=== PATIENT | female | born 1975 | race Caucasian/White ===

== ENCOUNTER 2018-12-02 22:18 | Day surgery (SDC) | payer BC, OTHER ==
--- NOTE | 2018-12-02 22:28 | PDOC ---
History of Present Illness - General Chief Complaint: Pain, Acute Stated Complaint: SUDDEN ONSET ABDOMINAL PAIN Time Seen by Provider: 12/02/18 22:27 - History of Present Illness Initial Comments: 12/02/18 23:14 This otherwise healthy 43-year-old woman () presents with several hour history of progressive abdominal pain. Patient states that she began to have some discomfort in the upper portion of her abdomen approximately 5:30 PM today she was driving home from [place]. Over the next few hours pain became more widespread, ultimately localized in bilateral lower quadrants. Patient states that the pain is intermittently more severe, especially with movement . She has had intermittent nausea without vomiting. No fever or chills noted. She denies dysuria/hematuria/urinary frequency or urgency. Last menstrual period "just finished" (normal duration and flow). No unusual vaginal discharge noted. Patient had normal bowel movement this morning. Last full meal was at breakfast early this morning. Had small bite of rice at approximately 7 PM No recent travel. No recent upper respiratory infection or other acute febrile illness. On no daily medications No significant past medical history () No known ALLERGIES Denies smoking/daily alcohol or other recreational drug use Past History - Past Medical History Allergies/Adverse Reactions: Allergies Allergy/AdvReac Type Severity Reaction Status Date / Time No Known Allergies Allergy Verified 12/02/18 22:20 Home Medications: Ambulatory Orders NK [No Known Home Medication] 12/02/18 Review of Systems - Review of Systems Able to Perform ROS?: Yes Comments:: 12 point review of systems is negative except for what is noted in the history of present illness *Physical Exam - Physical Exam Comments: GENERAL: Adult female, alert and oriented 3, in mild distress secondary lower abdominal pain HEAD: Normal with no signs of trauma. EYES: PERRLA, EOMI, sclera anicteric, conjunctiva clear. ENT: Ears normal, nares patent, oropharynx clear without exudates. Dry mucous membranes. NECK: Normal range of motion, supple without lymphadenopathy, JVD, or masses. LUNGS: Breath sounds equal, clear to auscultation bilaterally. No wheezes, and no crackles. HEART:Regular rate and rhythm, normal S1 and S2 without murmur, rub or gallop. ABDOMEN:.Hypoactive bowel sounds. Soft, no masses, moderate tenderness to palpation bilateral lower quadrants with positive rebound EXTREMITIES: Normal range of motion, no edema. No clubbing or cyanosis. No erythema, or tenderness. NEUROLOGICAL: Cranial nerves II through XII grossly intact. Normal speech. No focal neurological deficits. ED Treatment Course - LABORATORY CBC & Chemistry Diagram: 12/02/18 22:30 12/02/18 22:30 Progress Note - Progress Note Progress Note: Otherwise healthy 43-year-old woman presents with several hour history of abdominal pain. Nausea (without vomiting) is present but no other associated symptoms. Exam consistent with lower abdominal tenderness with rebound. Appendicitis vs Diverticulitis vs(much less likely) pyelonephritis/perirenal abscess, tubo-ovarian abscess IV started and patient received a liter of normal saline IV. Laboratory evaluation notable for white blood cell count of 16,400 with predominance of neutrophils. BUN 15 with creatinine is 0.9. Electrolytes are normal as are LFTs. PGU is negative. Urinalysis shows no evidence of infection or other acute abnormalities Abdominal/pelvic CT with oral and IV contrast performed. Preliminary interpretation by Imaging airport operations officer: 1.2 cm thick-walled appendix with minimal surrounding fat stranding, consistent with acute appendicitis. No evidence of abscess or perforation. Results discussed with the patient and her Patient given Zosyn 4.5 g IV. Case discussed with of [facility], on-call for general surgery : Plan will be for surgery performed here in the morning. The patient will be admitted here (satellite, 's service). Acetaminophen 1 g IV given. Twelve-lead electrocardiogram performed: Sinus tachycardia 108 bpm; axis, intervals and waveforms are all normal. No evidence of acute ST or T-wave abnormalities. No evidence of acute cardiac arrhythmia. Medical Decision Making - Medical Decision Making 12/03/18 02:41 PA chest x-ray performed: No evidence of infiltrates,effusions or masses. Cardiac silhouette/great vessels/bony structures all within normal limits. *DC/Admit/Observation/Transfer Diagnosis at time of Disposition: Acute appendicitis Qualifiers: Acute appendicitis type: with localized peritonitis Appendicitis gangrene presence: unspecified whether gangrene present Appendicitis perforation presence : without perforation Appendicitis abscess presence: without abscess Qualified Code(s): K35.30 - Acute appendicitis with localized peritonitis, without perforation or gangrene - Discharge Dispostion Condition at time of disposition: Stable Decision to Admit order: Yes - Referrals - Patient Instructions - Post Discharge Activity
[2018-12-02 22:49] LABS: BASO % 0.4 % (0-2.0); EOS % 0.3 % (0-4.5); HEMATOCRIT 39.8 % (32.4-45.2); HEMOGLOBIN 12.9 GM/dl (10.7-15.3); LYMPH % 6.9 % (8-40); MCH 29.7 pg (25.7-33.7); MCHC 32.5 g/dl (32.0-36.0); MEAN CELL VOLUME 91.4 fl (80-96); MEAN PLT VOLUME 7.8 fl (7.5-11.1); MONO % 6.7 % (3.8-10.2); NEUT % 85.7 % (42.8-82.8); PLATELET COUNT 330 K/MM3 (134-434); RBC 4.35 M/mm3 (3.60-5.2); RDW 13.9 % (11.6-15.6); WHITE BLOOD COUNT 16.4 K/mm3 (4.0-10.8)
[2018-12-02 23:02] LABS: BILIRUBIN,TOTAL 0.4 mg/dl (0.2-1); CALCIUM 8.7 mg/dl (8.5-10); CREATININE 0.7 mg/dl (0.55-1.3); POTASSIUM 3.8 mmol/L (3.5-5.1); TOT PROT 6.6 g/dl (6.4-8.2)
[2018-12-02 23:08] LABS: EPITHELIAL CELLS MANY /hpf
[2018-12-02] MEDS ORDERED: SODIUM CHLORIDE 1,000 ML IV STA (23:13)
[2018-12-03] MEDS ORDERED: PIPERACILLIN/TAZOB 4.5 GM 4.5 GM in DEXTROSE 5%-WATER 100 ML IVPB ONE (01:40)
[2018-12-03] MEDS ORDERED: PIPERACILLIN/TAZOBACTAM 4.5 GM VIAL IVPB ONE (01:41)
[2018-12-03] MEDS ORDERED: ACETAMINOPHEN INJECTION 100 ML IVPB ONE (01:56)
[2018-12-03] MEDS ORDERED: ACETAMINOPHEN 1000 MG/100 ML VIAL (NON FORMULARY) IVPB ONE ×2 (02:01→08:15)
[2018-12-03 03:16] VITALS: BMI 26.5
[2018-12-03] MEDS ORDERED: LACTATED RINGERS SOLUTION 1,000 ML IV SCH ×4 (08:00→19:23)
[2018-12-03] MEDS ORDERED: BUPIVACAINE HCL/PF 0.5% (5MG/ML) 10 ML VIAL ONE (09:23)
[2018-12-03] MEDS ORDERED: LIDOCAINE HCL 1% PRESERVATIVE FREE - 30ML VIAL ONE (09:23)
[2018-12-03] MEDS ORDERED: fentaNYL CITRATE 250 MCG/5 ML VIAL ONE (09:33)
[2018-12-03] MEDS ORDERED: MIDAZOLAM HCL 2 MG/2 ML SINGLE DOSE VIAL ONE (09:33)
[2018-12-03] MEDS ORDERED: SUCCINYLCHOLINE CHLORIDE 200 MG/10 ML SYRINGE ONE (09:34)
[2018-12-03] MEDS ORDERED: PROPOFOL 20 ML ONE (09:34)
[2018-12-03] MEDS ORDERED: ROCURONIUM BROMIDE 50 MG/5 ML SYRINGE ONE (09:34)
[2018-12-03] MEDS ORDERED: DEXAMETHASONE SOD PHOSPHATE 4 MG/1 ML VIAL ONE ×2 (09:35→10:37)
[2018-12-03] MEDS ORDERED: ONDANSETRON 4 MG/2 ML VIAL ONE ×2 (09:35→10:37)
--- NOTE | 2018-12-03 09:47 | HP ---
Admitting History and Physical - Admission Chief Complaint: abdominal pain migrating to RLQ History of Present Illness: 43yo healthy F with h/o presents with generalized abdominal pain starting yesterday evening, migrating to lower abdomen and RLQ, associated with nausea, chills but no vomiting. Normal BM yesterday morning. In ER, she has wbc [address] shows acute appendicitis without apparent perforation or abscess. She has gotten IV fluids, Zosyn and pain medicine. Seen and examined in bed; feeling a little better, but hurts when she moves. Urinating ok. Just finished her period. History Source: Patient Limitations to Obtaining History: No Limitations - Past Medical History ...: No - Past Surgical History Past Surgical History: Yes: - Smoking History Smoking history: Never smoked Have you smoked in the past 12 months: No - Alcohol/Substance Use Hx Alcohol Use: No History of Substance Use: reports: None - Social History Usual Living Arrangement: Yes: With Spouse ADL: Independent Occupation: teacher Home Medications - Allergies Allergies/Adverse Reactions: Allergies Allergy/AdvReac Type Severity Reaction Status Date / Time No Known Allergies Allergy Verified 12/02/18 22:20 - Home Medications Home Medications: Ambulatory Orders NK [No Known Home Medication] 12/02/18 Family Medical History Family History: Unremarkable (noncontributory) Review of Systems - Review of Systems Constitutional: reports: Chills, Loss of Appetite. denies: Fever Eyes: reports: Other (glasses for distance). denies: Blurred Vision, Recent Change in Vision HENT: denies: Difficult Swallowing, Throat Pain Neck: denies: Swollen Glands, Tenderness Cardiovascular: denies: Chest Pain, Palpitations Respiratory: denies: Cough, SOB Gastrointestinal: reports: Abdominal Pain, Nausea. denies: Constipation, Diarrhea, Vomiting Genitourinary: denies: Burning, Dysuria Musculoskeletal: denies: Back Pain, Joint Pain, Muscle Pain Integumentary: denies: Change in Color, Rash Neurological: reports: Headache (occasional). denies: Dizziness Psychiatric: denies: Anxiety, Depression Physical Examination Vital Signs: Vital Signs Temperature 97.8 F 12/03/18 06:41 Pulse Rate 92 H 12/03/18 06:41 Respiratory Rate 18 12/03/18 06:41 Blood Pressure 103/61 12/03/18 06:41 O2 Sat by Pulse Oximetry (%) 98 12/03/18 06:41 Constitutional: Yes: Well Nourished, No Distress, Calm Eyes: Yes: Conjunctiva Clear, EOM Intact HENT: Yes: Atraumatic, Normocephalic Neck: Yes: Supple, Trachea Midline Cardiovascular: Yes: Regular Rate and Rhythm Respiratory: Yes: Regular, CTA Bilaterally Gastrointestinal: Yes: Soft, Hypoactive Bowel Sounds, Tenderness (RLQ, suprapubic, also referred from LLQ; no rebound/guarding) ...Rectal Exam: Yes: Deferred Renal/: No: CVA Tenderness - Left, CVA Tenderness - Right Musculoskeletal: No: Back Pain, Joint Stiffness, Joint Swelling Extremities: No: Cool, Cyanosis Edema: No Peripheral Pulses WNL: Yes Integumentary: No: Jaundice, Rash Neurological: Yes: Alert, Oriented Psychiatric: Yes: Alert, Oriented Labs: CBC, BMP 12/02/18 22:30 12/02/18 22:30 CMP Sodium 136 mmol/L (136-145) 12/02/18 22:30 Potassium 3.8 mmol/L (3.5-5.1) 12/02/18 22:30 Chloride 104 mmol/L (98-107) 12/02/18 22:30 Carbon Dioxide 28 mmol/L (21-32) 12/02/18 22:30 Anion Gap 4 MMOL/L (8-16) L 12/02/18 22:30 BUN 15.0 mg/dl (7-18) 12/02/18 22:30 Creatinine 0.7 mg/dl (0.55-1.3) 12/02/18 22:30 Est GFR (CKD-EPI)AfAm 122.99 12/02/18 22:30 Est GFR (CKD-EPI)NonAf 106.12 12/02/18 22:30 Random Glucose 118 mg/dl (74-106) H 12/02/18 22:30 Calcium 8.7 mg/dl (8.5-10) 12/02/18 22:30 Total Bilirubin 0.4 mg/dl (0.2-1) 12/02/18 22:30 AST 15 U/L (15-37) 12/02/18 22:30 ALT 14 U/L (13-61) 12/02/18 22:30 Alkaline Phosphatase 48 U/L (45-117) 12/02/18 22:30 Total Protein 6.6 g/dl (6.4-8.2) 12/02/18 22: Albumin 4.0 g/dl (3.4-5.0) 12/02/18 22:30 Urine Test Results Urine Color Yellow 12/02/18: Urine Appearance Clear 12/02/18: Urine pH 6.0 (4.5-8) 12/02/18 22: Urine Protein Negative (NEGATIVE) 12/02/18 22:30 Urine Glucose (UA) Negative (NEGATIVE) 12/02/18: Urine Ketones Negative (NEGATIVE) 12/02/18: Urine Blood Trace-intact (NEGATIVE) 12/02/18 Urine Nitrite Negative (NEGATIVE) 12/02/18: Urine Bilirubin Negative (NEGATIVE) 12/02/18:30 Ur Leukocyte Esterase Negative (NEGATIVE) 12/02/18: Urine RBC 2-5 /hpf (0-4) 12/02/18: Urine WBC 2-5 (NEGATIVE) 12/02/18 22:30 Imaging - Results Cat Scan: Report Reviewed, Image Reviewed (enlarged appendix with inflammatory changes, no apparent abscess or perforation) Problem List - Problems (1) Acute appendicitis with localized peritonitis, without perforation, abscess , or gangrene Assessment/Plan: admit 23H/satellite to surgery NPO until postop/IV fluids pain meds prn nonnarcotics first line DVT prophylaxis periop antibiotics Discussed with patient risks, benefits and alternatives of laparoscopic possible open appendectomy, including but not limited to bleeding, infection, injury to adjacent structures, intestinal leak or injury, intraabdominal abscess , incisional hernia, need for further procedures; alternatives include antibiotics, delayed or no surgery - risks of this include failure of nonoperative therapy, perforation, sepsis, recurrence. Patient desires to proceed with operation - will take to OR for above. Informed consent signed for same. Code(s): K35.30 - ACUTE APPENDICITIS WITH LOC PERITONITIS, W/O PERF OR GANGR (2) RLQ abdominal pain Code(s): R10.31 - RIGHT LOWER QUADRANT PAIN (3) Nausea alone Code(s): R11.0 - NAUSEA (4) Chills (without fever) Code(s): R68.83 - CHILLS (WITHOUT FEVER)
--- NOTE | 2018-12-03 10:27 | EKG ---
Test Reason : Blood Pressure : / mmHG Vent. Rate : 108 BPM Atrial Rate : 108 BPM P-R Int : 154 ms QRS Dur : 072 ms QT Int : 342 ms P-R-T Axes : 057 057 002 degrees QTc Int : 458 ms SINUS TACHYCARDIA OTHERWISE NORMAL ECG NO PREVIOUS ECGS AVAILABLE Confirmed by CHUY SHAY MD ([id number]) on 12/03/2018 10:26:56 AM Referred By: Confirmed By:CHUY SHAY MD
[2018-12-03] MEDS ORDERED: NEOSTIGMINE METHYLSULFATE 0.5 MG/ML - 10 ML MDV ONE (10:36)
[2018-12-03] MEDS ORDERED: GLYCOPYRROLATE 0.2 MG/1 ML VIAL ONE ×3 (10:37→10:58)
[2018-12-03] MEDS ORDERED: KETOROLAC TROMETHAMINE 30 MG/1 ML VIAL ONE (10:39)
[2018-12-03] MEDS ORDERED: LIDOCAINE HCL 1%, 10 MG/ML (50 mL VIAL) IJ ONE (10:43)
[2018-12-03] MEDS ORDERED: BUPIVACAINE HCL/PF 0.5% (5 MG/ML) 30 ML VIAL IJ ONE (10:43)
[2018-12-03] MEDS ORDERED: BENZOIN TINCTURE SWABSTICK TP ONE (10:46)
[2018-12-03] MEDS ORDERED: ONDANSETRON 4 MG/2 ML VIAL IVPUSH PRN ×2 (11:01→19:23)
[2018-12-03] MEDS ORDERED: PROMETHAZINE HCL 25 MG/1 ML VIAL IVPUSH PRN (11:01)
[2018-12-03] MEDS ORDERED: oxyCODONE HCL 5 MG TABLET PO PRN ×2 (11:01)
--- NOTE | 2018-12-03 11:16 | OP ---
Operative Note - Note: Operative Date: 12/03/18 Pre-Operative Diagnosis: acute appendicitis Operation: laparoscopic appendectomy Findings: inflamed, enlarged appendix; little yellow fluid in pelvis, suctioned Post-Operative Diagnosis: Same as Pre-op Surgeon: Kevin Byrd Anesthesiologist/CREDIT CARD INTERVIEWER: Luiz Manuel Anesthesia: General, Local (10ml 1% lido + 0.5% marcaine) Specimens Removed: appendix to pathology Estimated Blood Loss (mls): 5 Drains & Tubes with Location: Reyes out at end Drains, Volume Out (mls): 300 (UOP) Fluid Volume Replaced (mls): 900 (crystalloid) Operative Report Dictated: Yes
[2018-12-03] MEDS ORDERED: ACETAMINOPHEN 325 MG TABLET (FP) PO SCH (15:00)
[2018-12-03] MEDS ORDERED: IBUPROFEN 600 MG TABLET (FP) PO SCH (18:00)
[2018-12-03] MEDS: ACETAMINOPHEN 325 MG TABLET (FP) PO SCH (21:46)
[2018-12-03] MEDS: IBUPROFEN 600 MG TABLET (FP) PO SCH (23:56)
[2018-12-04] MEDS: ACETAMINOPHEN 325 MG TABLET (FP) PO SCH ×2 (02:32→10:44)
[2018-12-04] MEDS: IBUPROFEN 600 MG TABLET (FP) PO SCH (05:52)
[2018-12-04 06:56] VITALS: BP 107/69; PULSE 76; TEMP 98
--- NOTE | 2018-12-04 11:44 | DS ---
Physical Examination Vital Signs: Vital Signs Temperature 98.0 F 12/04/18 05:00 Pulse Rate 76 12/04/18 05:00 Respiratory Rate 18 12/04/18 05:00 Blood Pressure 107/69 12/04/18 05:00 O2 Sat by Pulse Oximetry (%) 98 12/04/18 06:55 Findings/Remarks: s/p lap appy seen and examined in bed feeling better, pain mainly in incisions, mostly umbilical little sneezing last night - and son at home having congestion/colds voiding, ambulating, passing gas, no BM yet tolerating diet Constitutional: Yes: Well Nourished, No Distress, Calm Eyes: Yes: Conjunctiva Clear, EOM Intact HENT: Yes: Atraumatic, Normocephalic Cardiovascular: Yes: Regular Rate and Rhythm Respiratory: Yes: Regular, CTA Bilaterally Gastrointestinal: Yes: Soft, Distention (mild), Hypoactive Bowel Sounds, Tenderness (incisional, mainly umbilical - minimal to none in RLQ) Extremities: No: Cool, Cyanosis Integumentary: Yes: Incision (x3 dressed). No: Jaundice, Rash Wound/Incision: Yes: Steri Strips (under dressings), Dressing Dry and Intact (x3 ). No: Dressing Removed Neurological: Yes: Alert, Oriented Labs: no new labs Discharge Summary Reason For Visit: APPENDICITIS Current Active Problems Acute appendicitis with localized peritonitis, without perforation, abscess, or gangrene (Acute) Chills (without fever) (Acute) Nausea alone (Acute) RLQ abdominal pain (Acute) Procedures: Principal: laparoscopic appendectomy Hospital Course: 43yo healthy F with h/o presented with abdominal pain settling in RLQ for <1 day, associated with chills and nausea but no vomiting. In ER, she had wbc [address] showed acute appendicitis without perforation. She was taken for uneventful laparoscopic appendectomy and given Zosyn x 2 doses preop. Postop, she has done well, ambulating, voiding, tolerating diet, passing gas, though no BM yet. Incisional pain is managed well with alternating tylenol and ibuprofen. She is discharged home with lifting restrictions to f/u in [address] Gomez. Time spent on discharge: 35 minutes Condition: Good - Instructions Diet, Activity, Other Instructions: Postoperative instructions: You had a laparoscopic appendectomy on 12/03/[address] Kevin Byrd of [facility]. Activity: Resume your usual activities gradually, but no heavy exertion or lifting/carrying more than 10-15 pounds for 1 month. Remove dressings 48 hours after surgery; sticky tapes underneath will fall off by themselves. You may shower daily once dressings come off (leave sticky tapes), just pat the incision areas dry. No bath or swimming until skin incisions have fully healed. Eat lightly at first, but advance to your usual diet as tolerated. Pain: For pain, you may use and alternate Tylenol (acetaminophen) 1-2 pills and/ or ibuprofen 200 mg (1-3 pills) every 6 hours each as needed; this means that you can take one OR the other at 3-hour intervals. Do not take more than 4000mg of acetaminophen in a day. Take medications as prescribed or indicated on the labeling. Follow-up: Call Dr. Byrd's office at [phone] to make your postop appointment (Monday in approximately 2 weeks after surgery). Clinic is held in the Diagnostic Center on the first floor of [facility] ( main campus), [facility] in [place]. Call the office if you have: * increasing pain not responsive to pain medication * fever of 101F or higher * vomiting * unusual or increasing bleeding or drainage from wounds * increasing redness or swelling at wound sites Also, see your primary medical doctor (Dr. Gomez) within 1-2 weeks. Referrals: Kevin Byrd MD [Staff Physician] - 2 Weeks (CALL for appointment time - Clinic is at [facility], 1st floor in the Diagnostic Center ( [facility])) Disposition: HOME - Home Medications Comprehensive Discharge Medication List: Ambulatory Orders Acetaminophen [Tylenol .Regular Strength -] 650 mg PO Q6H tablet 12/04/18 Ibuprofen [Motrin -] 600 mg PO Q6H tablet 12/04/18
--- NOTE | 2018-12-06 09:17 | PATH ---
Surgical Pathology Report Patient Name: SRINIVASA CELESTIN [facility]. Rec. #: [id number] /Age/Gender: 1975 (Age: 43) / F Account: <[id number]> Location: [facility] R Taken: 12/03/2018 Received: 12/03/2018 Reported: 12/06/2018 Physicians: Kevin Byrd M.D. Specimen(s) Received APPENDIX Clinical History Acute appendicitis Final Diagnosis APPENDIX, APPENDECTOMY: ACUTE APPENDICITIS AND PERIAPPENDICITIS. Electronically Signed Erika Vogt M.D. Gross Description Received in formalin, labeled "appendix," is a 5 cm. in length vermiform appendix with a stapled margin of resection and moderate attached fat. The serosa is focally hemorrhagic and shows areas of exudate. Sectioning reveals patent lumen with scant hemorrhagic material. The wall of the appendix averages 0.2 cm. in thickness. Operating Room Rn sections are submitted in one cassette. BRENNA/12/03/2018 sansalud/12/03/2018
--- NOTE | 2018-12-10 18:54 | OP ---
DATE OF OPERATION: 12/03/2018 LOCATION: [facility] Jose Richardson PREOPERATIVE DIAGNOSIS: Acute appendicitis. POSTOPERATIVE DIAGNOSIS: Acute appendicitis. PROCEDURE: Laparoscopic appendectomy. SURGEON: Kevin Byrd MD ANESTHESIA: General endotracheal and local, 10 mL of 1% lidocaine plus 0.5% Marcaine. ESTIMATED BLOOD LOSS: 5 mL. FLUIDS: 900 mL of crystalloid. URINE OUTPUT: 300 mL (Reyes out at end of case). SPECIMEN: Appendix to Pathology. FINDINGS: Inflamed enlarged appendix, little yellow fluid in the pelvis which was suctioned. DISPOSITION: Stable and extubated to PACU. INDICATIONS FOR PROCEDURE: The patient is a 43-year-old, healthy, female, with a history of only a previous section, who had presented to the emergency room with generalized abdominal pain beginning the evening prior, migrating to her lower abdomen and ultimately the right lower quadrant, associated with nausea and chills but no vomiting. In the ER, she had a white count of 16,000, and a CT showed acute appendicitis without apparent perforation or abscess. She was given IV fluid, started on Zosyn, and pain medicine as needed. Her exam was consistent with focal right lower quadrant tenderness as well as suprapubic tenderness, and referred tenderness to the right from the left lower quadrant without rebound or guarding. The risks, benefits, and alternatives of laparoscopic, possible open, appendectomy were discussed with the patient, including but not limited to bleeding, infection, injury to adjacent structures, intestinal leak or injury, intraabdominal abscess, incisional hernia, and need for further procedures. Alternatives were also discussed, including antibiotics, with delayed or no surgery, and attendant risks of failure of nonoperative therapy, perforation, sepsis, and recurrence. The patient desired to proceed with an operation and signed informed consent for the same, is now brought to the OR for this procedure. OPERATIVE TECHNIQUE: The patient was brought to the operating room and laid supine on the operating table. Sequential compression devices were applied to bilateral lower extremities, and her next dose of Zosyn was given immediately preoperatively. After induction and intubation by Anesthesia, a Reyes catheter was placed in the patient's bladder, which was removed at the end of the case. Her lower abdomen was then prepped and draped in sterile fashion. A small infraumbilical midline incision was made with a scalpel and carried in the subcutaneous tissues with electrocautery, until the abdominal wall fascia was identified, scored, and elevated with Renata clamps. The peritoneum was entered bluntly with the tip of a clamp ,and a fingertip was inserted to ensure entry into the abdominal cavity and the absence of any underlying adhesions. A stay suture of 0 Vicryl was then placed in the fascia in [id number] fashion for later closure, and a Zenaida trocar introduced directly into the abdominal cavity, which was secured in place with the balloon. The abdomen was insufflated with carbon dioxide. The patient was placed in Trendelenburg position, and the laparoscope inserted to inspect the abdominal cavity. The appendix was noted to slide up and out of the pelvis. It appeared inflamed and enlarged along its length. There was a little bit of yellow fluid in the pelvis. Two additional 5-mm ports were placed under direct vision in the left lower quadrant and the suprapubic areas. Camera was switched to the left lower quadrant port, and the pelvic fluid was suctioned with the suction rag collector device. The appendix was then grasped with one grasper through the operative ports, and a [place] dissector used from the other to create a window in the mesoappendix at the base, where it joined the cecum. The appendix was then transected with a 45 purple load of the Endo NAOMI stapler at the appendicocecal junction. The appendix and mesoappendix were then held up and the mesoappendix transected with an additional 45 white load of the Endo NAOMI stapler. The staple lines were noted to be mostly hemostatic, but the [place] dissector with cautery attached was used to touch one tiny spot on the 2nd staple line to completely ensure hemostasis. The field was then inspected for any additional bleeding, which was not present. Residual fluid was suctioned from the area, and the appendix was placed in an EndoCatch bag and drawn up into the Zenaida port. The suprapubic port was then removed under direct vision. The Zenaida and appendix in the bag were removed en bloc under direct vision, and the camera and the left lower quadrant port also withdrawn together. The abdomen was exsufflated of carbon dioxide, and the patient was returned to neutral position. The stay suture at the umbilicus was tied to close the fascia there. The appendix was passed off for a specimen to Pathology. Local anesthetic was infiltrated into all 3 port sites, and the skin was closed with 4-0 Vicryl subcuticular sutures, including a running at the umbilicus. Benzoin and Steri-Strips were applied over each incision, and dressings of gauze and Tegaderm placed over these. Counts were correct at the end of the procedure. The Reyes catheter was then removed from the patient's bladder. The patient was then awakened and extubated by anesthesia, moved back to a stretcher, and taken to the recovery room in stable condition, having tolerated the procedure well. Kevin Byrd M.D. [id number] MTDD
== END 2018-12-04 11:58 | disposition home or self-care (01) ==
LOC: FER 22:18 → FM/S 12-03 01:50 → UNDOADMIN 12-03 01:50 → FM/S 12-03 01:50 → FASUSAT 12-03 01:50 → UNDOADMIN 12-03 02:10 → FM/S 12-03 02:10 → FASUSAT 12-04 11:58
PROVIDERS: ATTEND Surgery
PROC: 0DTJ4ZZ Resection of Appendix, Percutaneous Endoscopic Approach (ICD-10-PCS; principal; 2018-12-03 15:00)
DX: K35.30 Acute appendicitis with localized peritonitis, without perforation or gangrene (principal)
CPT/HCPCS: 36415; 71045-TC-FY; 74177-TC; 80053; 81003; 81015; 84703; 85025; 93005; 94760; 99282-25; J0131; J7030